=== PATIENT | male | born 1950 | race Hispanic/Latino ===

== ENCOUNTER 2018-02-01 08:12 | Outpatient (CLI) | payer MEDICARE ==
[2018-02-01] MEDS ORDERED: XYLOCAINE TOPICAL 4% TP ONE ×2 (08:17→09:57)
== END 2018-02-01 08:13 | disposition home or self-care (01) ==
LOC: WOUND 08:12
PROVIDERS: ATTEND Surgery
DX: L97.211 Non-pressure chronic ulcer of right calf limited to breakdown of skin (principal); I25.10 Atherosclerotic heart disease of native coronary artery without angina pectoris; I89.0 Lymphedema, not elsewhere classified; I10 Essential (primary) hypertension; F17.200 Nicotine dependence, unspecified, uncomplicated
CPT/HCPCS: 11042; 11045; G0463

== ENCOUNTER 2018-02-08 07:58 | Outpatient (CLI) | payer MEDICARE ==
[2018-02-08] MEDS ORDERED: XYLOCAINE TOPICAL 4% TP ONE ×2 (08:08→08:29)
== END 2018-02-08 07:59 | disposition home or self-care (01) ==
LOC: WOUND 07:58
PROVIDERS: ATTEND Surgery
DX: L97.211 Non-pressure chronic ulcer of right calf limited to breakdown of skin (principal); I25.10 Atherosclerotic heart disease of native coronary artery without angina pectoris; I89.0 Lymphedema, not elsewhere classified; I10 Essential (primary) hypertension; F17.200 Nicotine dependence, unspecified, uncomplicated
CPT/HCPCS: 99215; G0463

== ENCOUNTER 2018-02-15 07:27 | Outpatient (CLI) | payer MEDICARE | END 2018-02-15 07:28 | disposition home or self-care (01) | LOC: VAS 07:27 | PROVIDERS: ATTEND Surgery | DX: L97.211 Non-pressure chronic ulcer of right calf limited to breakdown of skin (principal); I89.0 Lymphedema, not elsewhere classified | CPT/HCPCS: 93970 ==

== ENCOUNTER 2018-02-15 09:17 | Outpatient (CLI) | payer MEDICARE ==
[2018-02-15] MEDS ORDERED: XYLOCAINE TOPICAL 4% TP ONE ×2 (09:21→09:38)
== END 2018-02-15 09:18 | disposition home or self-care (01) ==
LOC: WOUND 09:17
PROVIDERS: ATTEND Surgery
DX: L97.211 Non-pressure chronic ulcer of right calf limited to breakdown of skin (principal); I25.10 Atherosclerotic heart disease of native coronary artery without angina pectoris; I89.0 Lymphedema, not elsewhere classified; I10 Essential (primary) hypertension; F17.200 Nicotine dependence, unspecified, uncomplicated
CPT/HCPCS: 97597